=== PATIENT | female | born 1980 | race Caucasian/White ===

== ENCOUNTER 2017-10-31 13:45 | Emergency (ER) | payer OTHER ==
[~2017-10-31] VITALS: Ht 157.5 cm; Wt 90.7 kg
[2017-10-31] MEDS ORDERED: IV NORMAL SALINE 1,000ML 1,000 ML IV ONE ×2 (14:30→20:30)
[2017-10-31 14:37] LABS: BASO % 1 % (0-3); EOS # 0.1 x10^3/uL (0.0-0.7); EOS % 2 % (0-3); HEMATOCRIT 37.9 % (36.0-47.0); HEMOGLOBIN 12.9 g/dL (12.0-15.5); LYMPH # 2.5 x10^3/uL (1.0-4.8); LYMPH % 37 % (24-48); MEAN CORPUSCULAR HEMOGLOBIN 30 pg (25-35); MEAN CORPUSCULAR HGB CONC 34 g/dL (31-37); MEAN CORPUSCULAR VOLUME 88 fL (79-100); MONO # 0.5 x10^3/uL (0.0-1.1); MONO % 7 % (0-9); NEUT # 3.7 x10^3uL (1.8-7.7); NEUT % 54 % (31-73); PLATELET COUNT 224 x10^3/uL (140-400); RED BLOOD COUNT 4.31 x10^6/uL (3.50-5.40); RED CELL DISTRIBUTION WIDTH 13.5 % (11.5-14.5); WHITE BLOOD COUNT 6.9 x10^3/uL (4.0-11.0)
[2017-10-31] MEDS ORDERED: KETOROLAC 30 MG/ML VIAL. IV ONE (14:45)
[2017-10-31] MEDS ORDERED: ONDANSETRON PF 4 MG/2 ML VIAL. IV ONE (14:45)
[2017-10-31 14:49] LABS: ALBUMIN 3.3 g/dL (3.4-5.0); ALBUMIN/GLOBULIN RATIO 0.8 (1.0-1.7); CALCIUM 8.9 mg/dL (8.5-10.1); CREATININE 0.8 mg/dL (0.6-1.0); GFR 80.3; POTASSIUM 3.7 mmol/L (3.5-5.1); TOTAL BILIRUBIN 0.1 mg/dL (0.2-1.0); TOTAL PROTEIN 7.4 g/dL (6.4-8.2)
[2017-10-31 16:01] LABS: BILIRUBIN,URINE NEG (NEG); CLARITY,URINE CLEAR; COLOR,URINE STRAW; GLUCOSE,URINE NEG (NEG); UROBILINOGEN,URINE 0.2 mg/dL (0.2 mg/dL)
[2017-10-31 16:02] LABS: BACTERIA,URINE 0 /HPF (0-FEW); NITRITE,URINE NEG (NEG); RBC,URINE OCC /HPF (0-2); SQUAMOUS EPITHELIAL CELL,UR FEW /LPF; WBC,URINE OCC /HPF (0-4)
--- NOTE | 2017-10-31 17:40 | RAD ---
Limited abdominal ultrasound October 31, 2017 INDICATION: Right upper quadrant abdominal pain and flank pain. COMPARISON: None available TECHNIQUE: Sonographic images of the right upper quadrant of the abdomen were obtained utilizing grayscale and color Doppler. FINDINGS: Visualized portions of the pancreas appear normal. IVC is patent. The gallbladder is normal in appearance without evidence for gallstones, gallbladder wall thickening or pericholecystic fluid. There is increased echogenicity of the hepatic parenchyma suggestive of hepatocellular disease, most commonly hepatic steatosis. There is no intrahepatic or extrahepatic biliary ductal dilatation. Findings Limited evaluation of hepatic masses. The common bile duct measures 4 mm. Right kidney measures 10.2 x 4.6 x 4.7 cm. There is no hydronephrosis, solid renal mass or renal calculi. There is no free fluid within the abdomen. IMPRESSION: No evidence for cholelithiasis. No evidence for obstructive uropathy involving the right kidney. Increased echogenicity of the hepatic parenchyma is most suggestive of underlying hepatocellular disease, most commonly hepatic steatosis. Electronically signed by: Maria Eugenia Lugo MD (10/31/2017 5:37 PM) [facility]
--- NOTE | 2017-10-31 18:03 | PHYS DOC ---
Past History Past Medical History: Other Past Surgical History: Other Alcohol Use: None Drug Use: None Adult General Chief Complaint Chief Complaint: FLANK PAIN HPI HPI Patient is a 37 year old female who presents with flank pain. Patient reports 2 day history of right flank pain associated with nausea. Denies fevers or chills , vomiting, diarrhea or constipation, dysuria or hematuria. Previously his history of pyelonephritis. Denies history of kidney stone. No abdominal surgeries. She had positive test last week, followed by infertility clinic at [facility], hCG trended down from 10 to 5, has been told that she had miscarriage. She still has vaginal spotting today. Review of Systems Review of Systems Constitutional: Denies fever or chills Eyes: Denies change in visual acuity HENT: Denies nasal congestion or sore throat Respiratory: Denies cough or shortness of breath Cardiovascular: Denies chest pain or edema GI: Reports nausea. Denies abdominal pain, vomiting, bloody stools or diarrhea : Denies dysuria or hematuria , reports vaginal bleeding Musculoskeletal: Reports flank pain Integument: Denies rash or skin lesions Neurologic: Denies headache, focal weakness or sensory changes All other systems were reviewed and found to be within normal limits, except as documented in this note. Current Medications Current Medications Current Medications Medications (Trade) Dose Ordered Sig/Praveen Start Time Stop Time Status Last Admin Dose Admin Fentanyl Citrate (Fentanyl 2ml Vial) 50 mcg PRN Q15MIN PRN 10/31/17 16:00 11/01/17 15:59 10/31/17 16:17 50 MCG Ketorolac Tromethamine (Toradol) 30 mg 1X ONCE 10/31/17 14:45 10/31/17 14:46 DC 10/31/17 15:38 30 MG Ondansetron HCl (Zofran) 4 mg 1X ONCE 10/31/17 14:45 10/31/17 14:46 DC 10/31/17 15:37 4 MG Sodium Chloride 1,000 ml @ 1,000 mls/hr 1X ONCE 10/31/17 14:30 10/31/17 15:29 DC 10/31/17 15:38 1,000 MLS/HR Allergies Allergies Allergies Coded Allergies Type Severity Reaction Last Updated Verified No Known Drug Allergies 10/31/17 No Physical Exam Physical Exam Constitutional: Obese, no acute distress, non-toxic appearance. HENT: Normocephalic, atraumatic, bilateral external ears normal, oropharynx moist, nose normal. Eyes: PERRLA, EOMI, conjunctiva normal, no discharge. Neck: supple, no stridor. Cardiovascular: RRR, no murmurs, no edema. Lungs & Thorax: LCTAB, no wheezing, no respiratory distress. Abdomen: soft, right upper quadrant tenderness without rebound or guarding, otherwise nontender, nondistended. no masses or pulsatile masses, specifically there is no suprapubic or lower quadrant tenderness Skin: Warm, dry, no erythema, no rash. Back: Right CVA tenderness is present Extremities: No tenderness, no edema. Neurologic: Alert and oriented X 3, no focal deficits noted. Psychologic: Affect normal, judgement normal, mood normal. Current Patient Data Vital Signs Vital Signs Date Time Temp Pulse Resp B/P (MAP) Pulse Ox O2 Delivery O2 Flow Rate FiO2 10/31/17 17:00 65 18 107/70 (82) 98 Room Air 10/31/17 14:03 98.2 Lab Results Laboratory Tests Test 10/31/17 14:22 10/31/17 14:23 Urine Collection Type U cath Urine Color Straw Urine Clarity Clear Urine pH 6.0 Urine Specific [place] <=1.005 Urine Protein Neg (NEG-TRACE) Urine Glucose (UA) Neg mg/dL (NEG) Urine Ketones (Stick) Neg mg/dL (NEG) Urine Blood Neg (NEG) Urine Nitrite Neg (NEG) Urine Bilirubin Neg (NEG) Urine Urobilinogen Dipstick 0.2 mg/dL (0.2 mg/dL) Urine Leukocyte Esterase Neg (NEG) Urine RBC Occ /HPF (0-2) Urine WBC Occ /HPF (0-4) Urine Squamous Epithelial Cells Few /LPF Urine Bacteria 0 /HPF (0-FEW) White Blood Count 6.9 x10^3/uL (4.0-11.0) Red Blood Count 4.31 x10^6/uL (3.50-5.40) Hemoglobin 12.9 g/dL (12.0-15.5) Hematocrit 37.9 % (36.0-47.0) Mean Corpuscular Volume 88 fL (79-100) Mean Corpuscular Hemoglobin 30 pg (25-35) Mean Corpuscular Hemoglobin Concent 34 g/dL (31-37) Red Cell Distribution Width 13.5 % (11.5-14.5) Platelet Count 224 x10^3/uL (140-400) Neutrophils (%) (Auto) 54 % (31-73) Lymphocytes (%) (Auto) 37 % (24-48) Monocytes (%) (Auto) 7 % (0-9) Eosinophils (%) (Auto) 2 % (0-3) Basophils (%) (Auto) 1 % (0-3) Neutrophils # (Auto) 3.7 x10^3uL (1.8-7.7) Lymphocytes # (Auto) 2.5 x10^3/uL (1.0-4.8) Monocytes # (Auto) 0.5 x10^3/uL (0.0-1.1) Eosinophils # (Auto) 0.1 x10^3/uL (0.0-0.7) Basophils # (Auto) 0.0 x10^3/uL (0.0-0.2) Maternal Serum HCG Beta Subunit 2 mIU/mL (0-6) Sodium Level 139 mmol/L (136-145) Potassium Level 3.7 mmol/L (3.5-5.1) Chloride Level 106 mmol/L (98-107) Carbon Dioxide Level 26 mmol/L (21-32) Anion Gap 7 (6-14) Blood Urea Nitrogen 10 mg/dL (7-20) Creatinine 0.8 mg/dL (0.6-1.0) Estimated GFR (Cockcroft-Gault) 80.3 BUN/Creatinine Ratio 13 (6-20) Glucose Level 105 mg/dL (70-99) H Calcium Level 8.9 mg/dL (8.5-10.1) Total Bilirubin 0.1 mg/dL (0.2-1.0) L Aspartate Amino Transferase (AST) 15 U/L (15-37) Alanine Aminotransferase (ALT) 20 U/L (14-59) Alkaline Phosphatase 88 U/L (46-116) Total Protein 7.4 g/dL (6.4-8.2) Albumin 3.3 g/dL (3.4-5.0) L Albumin/Globulin Ratio 0.8 (1.0-1.7) L Lipase 242 U/L (73-393) EKG EKG [] Radiology/Procedures Radiology/Procedures PROCEDURE: ABDOMEN LTD Limited abdominal ultrasound October 31, 2017 INDICATION: Right upper quadrant abdominal pain and flank pain. COMPARISON: None available TECHNIQUE: Sonographic images of the right upper quadrant of the abdomen were obtained utilizing grayscale and color Doppler. FINDINGS: Visualized portions of the pancreas appear normal. IVC is patent. The gallbladder is normal in appearance without evidence for gallstones, gallbladder wall thickening or pericholecystic fluid. There is increased echogenicity of the hepatic parenchyma suggestive of hepatocellular disease, most commonly hepatic steatosis. There is no intrahepatic or extrahepatic biliary ductal dilatation. Findings Limited evaluation of hepatic masses. The common bile duct measures 4 mm. Right kidney measures 10.2 x 4.6 x 4.7 cm. There is no hydronephrosis, solid renal mass or renal calculi. There is no free fluid within the abdomen. IMPRESSION: No evidence for cholelithiasis. No evidence for obstructive uropathy involving the right kidney. Increased echogenicity of the hepatic parenchyma is most suggestive of underlying hepatocellular disease, most commonly hepatic steatosis. Electronically signed by: Sonia Crespo MD (10/31/2017 5:37 PM) [facility] DICTATED AND SIGNED BY: SONIA CRESPO MD DATE: 10/31/17 173[] PATIENT: JARROD WALKER ACCOUNT: [id number] : 1980 LOCATION: ER AGE: 37 SEX: F EXAM STATUS: REG ER ORD. PHYSICIAN: ZABRINA MIRZA MD REASON: right flank pain had unremarkable us still in pain PROCEDURE: CT ABD PELV W/ IV CONTRST ONLY PQRS Compliance Statement: One or more of the following individualized dose reduction techniques were utilized for this examination: 1. Automated exposure control 2. Adjustment of the mA and/or kV according to patient size 3. Use of iterative reconstruction technique CT ABD PELV W/ IV CONTRST ONLY Clinical Indication: Right flank pain, nausea, vomiting, constipated x 1 week, recently dx with miscarriage. Comparison: None. Technique: Helical CT imaging of the abdomen and pelvis is performed after 75 cc Omnipaque 300 IV contrast. Oral contrast not given. Findings: Lung bases clear. Cardiac size normal. Liver, gallbladder, spleen, pancreas, adrenal glands, abdominal aorta, and kidneys are normal. Evaluation of bowel may be limited without oral contrast. Stomach not well distended. Small fat-containing umbilical hernia. No dilated small bowel. No colon wall thickening. The appendix is normal caliber and contains a small amount of air in the lumen. There is minimal induration in the mesentery just medial to the mid appendix, coronal image 24. Subcentimeter mesenteric lymph nodes. No adenopathy. Urinary bladder is normal. Uterus and ovaries unremarkable. No pelvic free fluid. Small bone island of the right iliac wing. IMPRESSION: 1. There is minimal induration in the mesenteric fat medial to the appendix. The appendix is normal caliber and there is a small amount of air in the lumen. Findings not favored to be due to appendicitis but short-term imaging follow-up may be useful. 2. Otherwise no acute abdominal or pelvic abnormality. Electronically signed by: Kenny Garcia MD (10/31/2017 7:08 PM) [facility] DICTATED AND SIGNED BY: KENNY GARCIA MD DATE: 10/31/17 4995 CC: ZABRINA MIRZA MD; SANDI PEGUERO MD; RITIKA QUINTANILLA DO ~ Course & Med Decision Making Course & Med Decision Making Is of dysuria UA Pertinent Labs and Imaging studies reviewed. (See chart for details) The patient presents with flank pain and recent miscarriage. Gave IV fluids, Zofran, pain medication. She required multiple doses of pain medication. Straight catheter UA showed no blood, no evidence of infection. Obtained ultrasound to evaluate right upper quadrant and right kidney. There was no significant abnormality. The patient had ongoing pain. Will order CT of the abdomen and pelvis for further evaluation. She may require admission to the hospital. She does not complain of any pelvic pain and has no tenderness with palpation of the lower quadrants of her abdomen. Beta hCG was 2, essentially undetectable. Consistent with miscarriage. Patient stable at the end of my shift , will transfer care to Dr. Quintanilla to follow up results & disposition accordingly. Zabrina Mirza MD Patient signed out to me at 1800 shift change. 37-year-old female past medical history of obstructive sleep apnea and 2 miscarriages comes to the emergency department actively miscarrying after having a positive test last week. She says she developed pelvic pressure and discomfort yesterday with vaginal bleeding, her beta hCG has been trending down and though symptoms are consistent with prior miscarriages. Patient follows with infertility clinic at . Patient also complains of right lower flank pain radiating to her umbilicus since Friday, she says that she's had no appetite since that time and yesterday her pain significantly worsened. It is described as sharp and stabbing and worse with certain movements, today it got so bad she had to come for further evaluation. She says on the way here each bump she hit in the car cause severe discomfort she denies vomiting bowel or bladder symptoms. Her ED vital signs have been normal and she has required multiple doses of intravenous fentanyl with mediocre control of her discomfort. On my evaluation she has severe McBurney point tenderness with some rebound, abdominal ultrasound was negative, CT evaluation showed some nonspecific findings relating to the appendix without meeting criteria for acute appendicitis. 1941: I discussed the patient with on-call general surgeon Dr. Taylor, he recommends transfer to [facility] and allow clear liquids until midnight. Nothing by mouth after midnight, he will evaluate the patient tomorrow to determine further action he does request that we give antibiotics. 2003: Dr. Snowden accepts [facility] admission. Cefoxitin 1 g IV has been initiated, the patient is agreeable to transfer. Dragon Disclaimer Dragon Disclaimer This electronic medical record was generated, in whole or in part, using a voice recognition dictation system. Departure Time of Disposition: 19:56 Disposition: [facility] Diagnosis: abdominal pain rule out appendicitis, miscarriage Condition: STABLE Referrals: SANDI PEGUERO MD (PCP) Additional Instructions: EMS transfer to [facility] for [facility] admission Dr. Snowden is accepting and general surgery to be consulted. Clear liquids, nothing by mouth after midnight. Departure Departure: Disposition: [facility] Condition: STABLE Referrals: SANDI PEGUERO MD (PCP) Additional Instructions: EMS transfer to [facility] for [facility] admission Dr. Snowden is accepting and general surgery to be consulted. Clear liquids, nothing by mouth after midnight. ZABRINA MIRZA MD Oct 31, 2017 18:03 RITIKA QUINTANILLA DO Oct 31, 2017 19:44
[2017-10-31] MEDS ORDERED: CONTRAST GIVEN MC PRN (18:15)
[2017-10-31] MEDS ORDERED: IOHEXOL 300 MG/ML 75 ML VIAL. IV ONE (18:15)
--- NOTE | 2017-10-31 19:11 | RAD ---
PQRS Compliance Statement: One or more of the following individualized dose reduction techniques were utilized for this examination: 1. Automated exposure control 2. Adjustment of the mA and/or kV according to patient size 3. Use of iterative reconstruction technique CT ABD PELV W/ IV CONTRST ONLY Clinical Indication: Right flank pain, nausea, vomiting, constipated x 1 week, recently dx with miscarriage. Comparison: None. Technique: Helical CT imaging of the abdomen and pelvis is performed after 75 cc Omnipaque 300 IV contrast. Oral contrast not given. Findings: Lung bases clear. Cardiac size normal. Liver, gallbladder, spleen, pancreas, adrenal glands, abdominal aorta, and kidneys are normal. Evaluation of bowel may be limited without oral contrast. Stomach not well distended. Small fat-containing umbilical hernia. No dilated small bowel. No colon wall thickening. The appendix is normal caliber and contains a small amount of air in the lumen. There is minimal induration in the mesentery just medial to the mid appendix, coronal image 24. Subcentimeter mesenteric lymph nodes. No adenopathy. Urinary bladder is normal. Uterus and ovaries unremarkable. No pelvic free fluid. Small bone island of the right iliac wing. IMPRESSION: 1. There is minimal induration in the mesenteric fat medial to the appendix. The appendix is normal caliber and there is a small amount of air in the lumen. Findings not favored to be due to appendicitis but short-term imaging follow-up may be useful. 2. Otherwise no acute abdominal or pelvic abnormality. Electronically signed by: Kenny Garcia MD (10/31/2017 7:08 PM) [facility]
[2017-10-31] MEDS ORDERED: IV NORMAL SALINE 50ML 50 ML ONE (19:58)
[2017-10-31] MEDS ORDERED: HYDROmorphone PF 1 MG/ML DISP.SYRIN IV ONE (20:30)
[2017-10-31 21:30] VITALS: BP 112/65
== END 2017-10-31 21:40 | disposition short-term general hospital (02) ==
LOC: ER 13:45
DX: R10.9 Unspecified abdominal pain (principal); O03.9 Complete or unspecified spontaneous abortion without complication
CPT/HCPCS: 36415; 74177; 76705; 80053; 81001; 83690; 84702; 85025; 96361; 96365; 96375; 96376; 99285; J0694; J1170; J1885; J2405; J3010; Q9967; J7030